=== PATIENT | female | born 1970 | race African-American/Black ===

== ENCOUNTER 2018-02-07 18:24 | Inpatient (IN) | payer OTHER ==
[~2018-02-07] VITALS: Ht 175.3 cm; Wt 125.7 kg
[~2018-02-07 18:24] MED LIST: ADDERALL 20 MG20 M1 PO; BUSPIRONE HCL10 MG PO; CYCLOBENZAPRINE5 MG PO; CYMBALTA60 MG PO; DEPAKOTE ER500 MG PO; FLEXERIL PO; GABAPENTIN600 M1 PO; GLUCOPHAGE XR500 MG PO; LIDODERM 5%1 PATC1 TRANSDERM; LISINOPRIL10 MG PO; NAPROSYN500 MG PO; PREDNISONE 10 M10 MG PO; PROTONIX 20 MG20 M1 PO; ROBAXIN 750 MG750 M1 PO; TYLENOL325 MG PO; WELLBUTRIN XL150 MG PO
[2018-02-07 18:25] VITALS: BP 131/87
[2018-02-07 20:26] LABS: HEMATOCRIT 38.3 % (37.0-47.0); HEMOGLOBIN 12.8 gm/dL (12.0-15.0); MCH 27.8 pg (26.0-34.0); MCHC 33.3 g/dL (28.0-37.0); MCV 83.2 fL (80.0-100.0); PLATELET COUNT 242 thou/uL (150-400); RDW 14.7 % (10.5-14.5); WBC 5.9 thou/uL (4.0-11.0)
[2018-02-07 20:35] LABS: CALCIUM 10.1 mg/dL (8.5-10.1); POTASSIUM 4.2 mmol/L (3.5-5.1)
[2018-02-07 20:39] LABS: PROTIME 9.9 Seconds (9.3-11.4)
[2018-02-07 20:40] LABS: ALBUMIN 3.6 g/dL (3.4-5.0); TOTAL BILIRUBIN 0.2 mg/dL (<0.1-1.0); TOTAL PROTEIN 7.5 g/dL (6.4-8.2)
[2018-02-07 20:51] LABS: ABSOLUTE NEUTROPHILS 2.8 thou/uL (1.4-8.2)
[2018-02-07 20:52] LABS: ANISOCYTOSIS 1+; OVALOCYTES OCCASIONAL
[2018-02-07] MEDS ORDERED: FLEXERIL PO (21:12)
[2018-02-07] MEDS ORDERED: PERCOCET 10-321 EACH PO (21:12)
[2018-02-07] MEDS ORDERED: GLUCOPHAGE XR500 MG PO (21:13)
[2018-02-07 22:04] VITALS: BP 152/97
[2018-02-07 22:12] VITALS: BP 117/57
[2018-02-07 23:31] VITALS: BP 102/73
[2018-02-08 04:18] VITALS: BP 115/77
[2018-02-08 07:21] VITALS: BP 152/83
[2018-02-08 11:20] VITALS: BP 106/54
[2018-02-08 16:27] VITALS: BP 123/99
[2018-02-08 19:25] VITALS: BP 109/66
[2018-02-09 03:29] VITALS: BP 135/81
[2018-02-09 07:25] VITALS: BP 140/76
[2018-02-09] MEDS ORDERED: TOPAMAX 25 MG T25 M1 PO (08:31)
[2018-02-09 11:17] VITALS: BP 140/92
[2018-02-09 13:04] VITALS: BP 140/92
[2018-02-09 13:14] LABS: AMP/METHAMP Negative (Negative); BARBITURATES Negative (Negative); BENZODIAZEPINES Negative (Negative); COCAINE Negative (Negative); METHADONE Negative (Negative); OPIATES POSITIVE (Negative); PCP Negative (Negative)
== END 2018-02-09 18:20 | disposition home or self-care (01) | DRG 103 ==
LOC: ER 18:24 → EROBS 21:31 → 2N 21:31 → ENTRNSPT 02-09 16:57 → 2N 02-09 18:20
PROVIDERS: Nurse Practitioner Acute Care; Physician Assistant
DX: G43.901 Migraine, unspecified, not intractable, with status migrainosus (principal); E11.40 Type 2 diabetes mellitus with diabetic neuropathy, unspecified; I10 Essential (primary) hypertension; G47.33 Obstructive sleep apnea (adult) (pediatric); J45.909 Unspecified asthma, uncomplicated; F41.9 Anxiety disorder, unspecified; F32.9 Major depressive disorder, single episode, unspecified; G89.29 Other chronic pain; M54.9 Dorsalgia, unspecified; F43.10 Post-traumatic stress disorder, unspecified; Z96.659 Presence of unspecified artificial knee joint; E11.65 Type 2 diabetes mellitus with hyperglycemia; E83.42 Hypomagnesemia; Z79.899 Other long term (current) drug therapy; Z90.710 Acquired absence of both cervix and uterus; Z90.13 Acquired absence of bilateral breasts and nipples; Z88.6 Allergy status to analgesic agent; Z88.2 Allergy status to sulfonamides; Z88.8 Allergy status to other drugs, medicaments and biological substances
CPT/HCPCS: 10081